=== PATIENT | male | born 1990 | race Caucasian/White ===

== ENCOUNTER 2020-04-14 07:45 | Emergency (ER) | payer OTHER ==
[~2020-04-14] VITALS: Ht 170.2 cm; Wt 72.6 kg
[2020-04-14] MEDS ORDERED: KETOROLAC TROMETHAMINE INJ 30 MG/ML VIAL ONE (08:06)
[2020-04-14] MEDS ORDERED: CYCLOBENZAPRINE 10 MG TABLET ONE ×2 (08:08→13:58)
[2020-04-14] MEDS ORDERED: KETOROLAC TROMETHAMINE INJ 30 MG/ML VIAL IM ONE (08:30)
[2020-04-14] MEDS ORDERED: CYCLOBENZAPRINE 10 MG TABLET PO ONE ×2 (08:30→14:00)
[2020-04-14] MEDS ORDERED: TIZANIDINE HCL 4 MG TABLET ONE (09:24)
[2020-04-14] MEDS ORDERED: TRAMADOL HCL 50 MG TABLET ONE ×2 (09:24→14:09)
[2020-04-14] MEDS ORDERED: TIZANIDINE HCL 4 MG TABLET PO ONE (09:30)
[2020-04-14] MEDS ORDERED: TRAMADOL HCL 50 MG TABLET PO ONE ×2 (09:30→14:00)
--- NOTE | 2020-04-14 10:30 | NUR ---
Patient eyes close arousable noted no further moaning for pain continue to monitor .
[2020-04-14 11:30] LABS: BASOPHILS % (AUTO) 0.5 % (0.0-2.0); EOSINOPHILS % (AUTO) 0.5 % (0.0-6.0); HEMATOCRIT 41 % (39-51); HEMOGLOBIN 13.2 g/dL (13.5-17.5); LYMPHOCYTES # (AUTO) 1.4 /CMM (0.8-4.8); LYMPHOCYTES % (AUTO) 27.7 % (20.0-44.0); MEAN CORPUSCULAR HGB CONC 32 g/dl (31.0-36.0); MEAN CORPUSCULAR VOLUME 77 fL (80-96); MONOCYTES # (AUTO) 0.4 /CMM (0.1-1.30); NEUTROPHILS # (AUTO) 3.3 /CMM (1.8-8.9); NEUTROPHILS % (AUTO) 63.3 % (43.0-81.0); PLATELET COUNT (AUTO) 281 /CMM (150-450); RED BLOOD CELL COUNT(AUTO) 5.27 MIL/uL (4.5-6.0); WHITE BLOOD COUNT (AUTO) 5.2 K/uL (4.3-11.0)
[2020-04-14 11:39] LABS: CALCIUM, SERUM 8.7 mg/dL (8.5-10.1); CREATININE 0.6 mg/dL (0.6-1.3); POTASSIUM 3.8 mmol/L (3.5-5.1)
--- NOTE | 2020-04-14 14:13 | NUR ---
Patient awake alert [facility] given Dr. Alcala talking to the patient for test result .
--- NOTE | 2020-04-14 14:42 | NUR ---
Dr. Alcala @ bedside med given for pain patient can Dc home when pain free .
[2020-04-14 15:47] VITALS: BP 125/67
--- NOTE | 2020-04-14 15:52 | NUR ---
Patient Dc home instruction and prescrition given .
--- NOTE | 2020-04-14 16:06 | NUR ---
Mango called his friend left message for dc home .
--- NOTE | 2020-04-14 16:19 | NUR ---
Called his friend JERARDO [phone] stated will be there in 30 minutes .
--- NOTE | 2020-04-14 17:22 | NUR ---
Awaiting for friend for ride home .
--- NOTE | 2020-04-14 17:48 | NUR ---
Dc home instruction given assisted to WC appreaciated .
== END 2020-04-14 18:18 | disposition home or self-care (01) ==
LOC: ER 07:49
DX: S29.012A Strain of muscle and tendon of back wall of thorax, initial encounter (principal); X58.XXXA Exposure to other specified factors, initial encounter; Y93.B9 Activity, other involving muscle strengthening exercises; Y92.89 Other specified places as the place of occurrence of the external cause; Y99.8 Other external cause status
CPT/HCPCS: 36415; 72128; 72131; 80048; 82550; 85025; 96372; 99285; J1885